=== PATIENT | male | born 1980 | race African-American/Black ===

== ENCOUNTER 2022-11-02 01:39 | Emergency (ER) | payer SELFPAY ==
[2022-11-02] VITALS (12 sets, daily range): BP systolic 147–166; BP diastolic 103–109; PULSE 90–113; RESP 16–25; TEMP 37.1; O2SAT 92–100
--- NOTE | ~2022-11-02 | CT_ITS ---
EXAMINATION: CTA chest PE protocol DATE: 11/02/2022 05:58 INDICATION: Left chest pain on inspiration. Shortness of breath. TECHNIQUE: Computed tomography angiography (CTA) of the chest was performed with 100 mL Omnipaque-350 intravenous contrast timed to evaluate the pulmonary arteries. Coronal maximum intensity projection 3D-reconstructions were created by the technologist. Automated exposure control and iterative reconst ruction technique were employed. The dose-length product was 282.16 mGy-cm. COMPARISON: None. FINDINGS: There is mild atelectasis in the lungs. There are airspace and groundglass opacities in lef t upper lobe, consistent with pneumonia. There is a trace left pleural effusion. The heart size is no rmal. No pericardial effusion. There is no pulmonary embolus. There is mild left hilar lymphadenopath y, likely reactive. There is mild thoracic spondylosis. There is mild chronic anterior wedging of mul tiple vertebral bodies. IMPRESSION: 1. No pulmonary embolus. 2. Left upper lobe pneumonia. 3. Mild left hilar lymphadenopathy, likely reactive. Reviewed, dictated and finalized at location A. ENT LOAN COUNSELOR
--- NOTE | 2022-11-02 01:40 | ECG_ITS ---
Measurements Intervals [place] Rate: 97 P: 50 NC: 164 QRS: 39 QRSD: 97 T: 40 QT: 347 QTc: 441 Interpretive Statements SINUS RHYTHM NORMAL ECG NO PREVIOUS ECG AVAILABLE FOR COMPARISON Electronically Signed On 11-02-2022 8:39:16 [employer]ITION[employer] by Ti Fish M.D.
[2022-11-02 01:55] LABS: Basophils Percent Auto 0.3 % (0.2-1.2); Eosinophils Percent Auto 0.3 % (0-4.4); Hematocrit 40.2 % (42.0-52.0); Hemoglobin 13.9 g/dL (14.0-18.0); Immature Granulocyte Absolute 0.06 K/mm3 (0.00-0.031); Immature Granulocyte Percent A 0.4 % (0-0.5); Lymphocytes Absolute Auto 3.46 K/mm3 (0.9-3.2); Lymphocytes Percent Auto 25.7 % (18.3-44.2); Mean Corpuscular HGB Conc 34.6 g/dl (32-36); Mean Corpuscular Hemoglobin 33.8 pg (26-34); Mean Corpuscular Volume 97.8 fl (80-100); Mean Platelet Volume 9.9 fl (7.4-10.4); Monocytes Percent Auto 7.4 % (2.6-8.5); Neutrophils Absolute Auto 8.9 K/mm3 (1.3-6.7); Neutrophils Percent Auto 65.9 % (45.5-73.1); Platelet Count Result 353 k/mm3 (150-375); Red Blood Count 4.11 M/mm3 (4.6-6.20); Red Cell Distribution Width 13.6 % (11.5-14.5); White Blood Count 13.5 K/mm3 (4.5-10.0)
[2022-11-02 02:05] LABS: Alanine Aminotransferase 21 U/L (6-50); Albumin Level 4.2 g/dL (3.5-5.1); Alkaline Phosphatase 113 U/L (38-126); Anion Gap 11 mmol/L (8-16); Aspartate Amino Transferase 24 U/L (17-59); Bilirubin,Total 0.5 mg/dL (0.2-1.3); Blood Urea Nitrogen 6 mg/dL (9-20); Calcium 8.5 mg/dL (8.4-10.2); Carbon Dioxide 23 mmol/L (22-30); Chloride 103 mmol/L (98-107); Estimated CRCL calculation 120 ml/min; Estimated Glomerular Filt Rate > 60; Glucose 95 mg/dL (65-110); Lipase 44 U/L (23-300); Potassium 3.1 mmol/L (3.4-5.0); Sodium 137 mmol/L (137-145)
[2022-11-02 02:16] LABS: Troponin I < 0.012 ng/mL (0.000-0.034)
[2022-11-02 02:22] LABS: INR 1.2; Prothrombin Time 14.2 Seconds (11.1-14.7)
[2022-11-02 02:23] LABS: Partial Thromboplastin Time 32.5 SECONDS (22.3-36.8)
--- NOTE | 2022-11-02 04:40 | PC.NURSE ---
patient here with complaint of left sided hest pain with inspiration. states it hurts when he moves and takes a deep breath. admits to smoking daily and states he had an upper respiratory infection a couple weeks ago.
[2022-11-02] MEDS: KETOROLAC 30 MG/ML VIAL (*BKC) IV PUSH (04:56)
[2022-11-02 05:03] LABS: Troponin I < 0.012 ng/mL (0.000-0.034)
--- NOTE | 2022-11-02 06:33 | ED.GENADULT ---
HPI - General Adult General Chief complaint: Chest Pain Stated complaint: CP Time Seen by Provider: 11/02/22 04:43 History of Present Illness HPI narrative: Patient is a 42-year-old male who presents ER with left-sided chest pain and back pain. Ongoing over the last 24 hours. Associate with cough. No fevers chills or sweats. No exertional component. Patient reports pain is worse with certain movements and deep breaths. No lower extremity swelling or cramping of the calves. No hemoptysis. Denies alleviating factors has not tried any oral pain medication. Related Data Allergies Allergy/AdvReac Type Severity Reaction Status Date / Time No Known Allergies Allergy Unverified 02/02/17 05:42 Review of Systems Review of Systems: All systems reviewed & are unremarkable except as noted in HPI and below Constitutional: Constitutional: Denies chills, Reports fatigue and Denies fever(s) ENT: Denies nasal congestion and Denies sore throat Cardiovascular: Cardiovascular: Reports chest pain, Denies rapid heart rate and Denies radiating jaw, neck or arm pain Respiratory: Respiratory: Reports cough, Denies dyspnea and Denies wheezing Gastrointestinal: Gastrointestinal: Denies abdominal pain, Denies diarrhea, Denies nausea and Denies vomiting PMFSH Past Medical History Medical History (Updated 11/02/22 @ 06:38 by Troy Pickering MD) Healthy adult male Surgical History Surgical History (Updated 11/02/22 @ 06:39 by Troy Pickering MD) No pertinent past surgical history Social History Social History (Updated 11/02/22 @ 06:39 by Troy Pickering MD) Smoking status: Current every day smoker Exam Narrative: GENERAL: Well-appearing, well-nourished, and in no acute distress. HEAD: Normocephalic, atraumatic. EYES: PERRL and EOMI. CHEST: Clear to auscultation. No respiratory distress. Reproducible chest wall tenderness. HEART: Regular rate and rhythm. Normal peripheral pulses. ABDOMEN: Soft, nontender, nondistended. EXTREMITIES: Normal range of motion. No edema. SKIN: Warm, dry, no rash. NEURO: Alert and oriented x3. PSYCH: Normal mood and affect. Course Course Emergency Course: Pain improving with treatment. Informed of results. Discussed treatment plan. No hypoxia. Discharge home. Vital Signs Vital signs: Vital Signs Temperature 98.8 F 12/11/22 01:51 Pulse Rate 102 H 11/02/22 01:51 Respiratory Rate 22 H 11/02/22 01:51 Blood Pressure 166/109 H 11/02/22 01:51 Pulse Oximetry 100 11/02/22 01:51 Oxygen Delivery Room Air 11/02/22 01:51 Temperature 98.8 F 11/02/22 01:51 Pulse Rate 93 11/02/22 06:00 Respiratory Rate 16 11/02/22 06:00 Blood Pressure 150/103 H 11/02/22 05:31 Pulse Oximetry 99 11/02/22 06:00 Oxygen Delivery Room Air 11/02/22 01:51 Medical Decision Making Vital Signs Vital Signs: Vital Signs Temperature 98.8 F 11/02/22 01:51 Pulse Rate 102 H 11/02/22 01:51 Respiratory Rate 22 H 11/02/22 01:51 Blood Pressure 166/109 H 11/02/22 01:51 Pulse Oximetry 100 11/02/22 01:51 Oxygen Delivery Room Air 11/02/22 01:51 Temperature 98.8 F 11/02/22 01:51 Pulse Rate 93 11/02/22 06:00 Respiratory Rate 16 11/02/22 06:00 Blood Pressure 150/103 H 11/02/22 05:31 Pulse Oximetry 99 11/02/22 06:00 Oxygen Delivery Room Air 11/02/22 01:51 Lab Data 11/02/22 01:50 11/02/22 01:50 Labs: Lab Results 11/02/22 11/02/22 11/02/22 Range/Units 01:50 01:50 01:50 WBC 13.5 H (4.5-10.0) K/mm3 RBC 4.11 L (4.6-6.20) M/mm3 Hgb 13.9 L (14.0-18.0) g/dL Hct 40.2 L (42.0-52.0) % MCV 97.8 (80-100) fl MCH 33.8 (26-34) pg MCHC 34.6 (32-36) g/dl RDW 13.6 (11.5-14.5) % Plt Count 353 (150-375) k/mm3 MPV 9.9 (7.4-10.4) fl Immature Gran % (Auto) 0.4 (0-0.5) % Neut % (Auto) 65.9 (45.5-73.1) % Lymph % (Auto) 25.7 (18.3-44.2) % [place] % (Auto) 7.4
== END 2022-11-02 06:47 | disposition home or self-care (01) ==
PROVIDERS: Emergency Provider Emergency Medicine
DX: J18.9 Pneumonia, unspecified organism (principal); F17.200 Nicotine dependence, unspecified, uncomplicated
CPT/HCPCS: 36415; 71275; 80053; 83690; 84484; 85025; 85610; 85730; 93005; 96374; 99284; J1885; Q9967

== ENCOUNTER 2024-05-05 13:44 | Emergency (ER) | payer SELFPAY ==
--- NOTE | ~2024-05-05 | CT_ITS ---
Non-contrast Head CT History: Blurry vision, hypertension Technique: Axial non-contrast imaging of the brain was performed. Dose reduction technique was used on this scan by utilizing automated exposure control and iterative reconstruction technique. The dose -length product (DLP) was 605.33 mGy-cm. Findings: There is no evidence of intracranial hemorrhage, mass lesion, or acute infarct. Brain par enchyma appears normal. The ventricles and subarachnoid spaces are normal in size. The calvarium ap pears normal. The visualized paranasal sinuses and mastoid air cells are clear. Impression: No significant abnormality seen. Reviewed, dictated and finalized at location . Impression: No significant abnormality seen.
--- NOTE | ~2024-05-05 | XR_ITS ---
EXAMINATION: XR chest 2V DATE: 05/05/2024 14:09 INDICATION: Central chest pain TECHNIQUE: PA and lateral views of the chest were obtained. COMPARISON: Chest CT dated 11/02/2022 FINDINGS: The lungs are clear with no focal airspace opacities, pulmonary edema, pleural effusion or pneumothor ax. The cardiomediastinal silhouette is normal. Mild thoracic spondylosis. IMPRESSION: 1. No acute cardiopulmonary disease. Reviewed, dictated and finalized at location A.
[2024-05-05 13:46] VITALS: BP 186/113; PULSE 95; RESP 20; TEMP 37.1; O2SAT 100
--- NOTE | 2024-05-05 13:46 | ECG_ITS ---
Test Date: 2024-05-05 13:51:57 Measurements Intervals [place] Rate: 96 P: 54 FL: 157 QRS: 40 QRSD: 84 T: 21 QT: 343 QTc: 433 Interpretive Statements SINUS RHYTHM WITHIN NORMAL LIMITS No previous ECG available for comparison Electronically Signed On 05-06-2024 06:59:47 CDT by Ti Fish M.D.
--- NOTE | 2024-05-05 13:52 | ED.CHESTPAIN ---
HPI - Chest Pain General Chief Complaint: Chest Pain <NAOMY Khalil Last Filed: 05/05/24 14:00> Stated Complaint: CP, HTN <NAOMY Khalil Last Filed: 05/05/24 14:00> Time Seen by Provider: 05/05/24 13:52 <NAOMY Khalil Last Filed: 05/05/24 14:00> Focused HPI: Patient is a 44 y/o male who presents to the ED with c/o CP and HTN. Patient reports he felt dizzy on Thursday and didn't go to work. On Thursday, he checked his blood pressure and noted it to be elevated. He is unsure of the number. Does not have known hx of HTN. Does not follow with PCP. Also reports having intermittent blurry vision and CP, midsternal, since Thursday. Denies aggravating or alleviating factors. Denies aggravation with exertion. Denies current CP. Denies headache, weakness, numbness, shortness of breath. Patient denies any other medications. He is a smoker. Denies hx of cardiac disease. GENERAL: Well-appearing, well-nourished, and in no acute distress. HEAD: Normocephalic, atraumatic. EYES: PERRL/EOMI CHEST: Clear to auscultation. ?No respiratory distress. HEART: Regular rate and rhythm.? MSK: No calf tenderness. No lower ext swelling. NEURO: ?Alert and oriented x3. Patient screened in triage and initial orders placed.? ?Additional care and disposition to be based upon?diagnostic testing and treatment. <NAOMY Khalil Last Filed: 05/05/24 14:00> Source: patient <NAOMY Khalil Last Filed: 05/05/24 14:00> Mode of arrival: ambulatory <NAOMY Khalil Last Filed: 05/05/24 14:00> Limitations: no limitations <NAOMY Khalil Last Filed: 05/05/24 14:00> History of Present Illness HPI narrative: Patient is a 44 year old male who presents to the ED with chest pain and hypertension. Patient reports he felt dizzy on Thursday and didn't go to work. On Thursday, he checked his blood pressure and noted it to be elevated to an unknown number. He does not have a history of HTN but does not follow with PCP regularly. He also notes intermittent blurry vision and midsternal chest pain which have been present since Thursday. Chest pain was non exertional. Chest pain is currently resolved. He currently has no complaints And states that all the symptoms have not completely resolved. He believes it has been years since he has seen a doctor. His significant other has been trying to get him in to see a doctor but they have had trouble establishing primary care. <Erika Carpenter MD - Last Filed: 05/05/24 22:11> Related Data Allergies/Adverse Reactions: Allergies Allergy/AdvReac Type Severity Reaction Status Date / Time No Known Allergies Allergy Unverified 02/02/17 05:42 <Yi Le PA-C - Last Filed: 05/05/24 14:00> Review of Systems Review of Systems: All systems reviewed & are unremarkable except as noted in HPI and below <Erika Carpenter MD - Last Filed: 05/05/24 22:11> PMFSH Past Medical History Medical History: Medical History (Updated 05/05/24 @ 20:30 by Erika Carpenter MD) Healthy adult male <Yi Le PA-C - Last Filed: 05/05/24 14:00> Surgical History Surgical History: Surgical History (Updated 11/02/22 @ 06:39 by Troy Pickering MD) No pertinent past surgical history <Yi Le PA-C - Last Filed: 05/05/24 14:00> Social History Social History: Social History (Updated 11/02/22 @ 06:39 by Troy Pickering MD) Smoking status: Current every day smoker <Yi Le PA-C - Last Filed: 05/05/24 14:00> Exam Narrative: GENERAL: Well-appearing, well-nourished, and in no acute distress. HEAD: Normocephalic, atraumatic. EYES: PERRLA and EOMI. ENT: Nares clear. Mucous membranes moist. NECK: Supple. CHEST: Clear to auscultation. No respiratory distress. HEART: Regular rate and rhythm. Normal peripheral pulses. ABDOMEN: Soft, nontender, nondistended.
[2024-05-05 14:24] LABS: Basophils Percent Auto 0.4 % (0.2-1.2); Eosinophils Absolute Auto 0.1 K/mm3 (0-0.3); Eosinophils Percent Auto 0.8 % (0-4.4); Hemoglobin 16.6 g/dL (14.0-18.0); Immature Granulocyte Absolute 0.04 K/mm3 (0.00-0.031); Immature Granulocyte Percent A 0.4 % (0-0.5); Lymphocytes Absolute Auto 2.32 K/mm3 (0.9-3.2); Mean Corpuscular HGB Conc 36.1 g/dl (32-36); Mean Corpuscular Hemoglobin 35.2 pg (26-34); Mean Corpuscular Volume 97.5 fl (80-100); Mean Platelet Volume 11.3 fl (7.4-10.4); Monocytes Absolute Auto 0.7 K/mm3 (0.1-0.6); Neutrophils Absolute Auto 6.5 K/mm3 (1.3-6.7); Neutrophils Percent Auto 67.4 % (45.5-73.1); Platelet Count Result 195 k/mm3 (150-375); Red Blood Count 4.72 M/mm3 (4.6-6.20); Red Cell Distribution Width 14.5 % (11.5-14.5); White Blood Count 9.7 K/mm3 (4.5-10.0)
[2024-05-05 14:28] LABS: Prothrombin Time 13.2 Seconds (11.1-14.7)
[2024-05-05 14:29] LABS: Alanine Aminotransferase 34 U/L (6-50); Albumin Level 4.9 g/dL (3.5-5.1); Alkaline Phosphatase 90 U/L (38-126); Anion Gap 10 mmol/L (4-12); Aspartate Amino Transferase 43 U/L (17-59); Bilirubin,Total 0.7 mg/dL (0.2-1.3); Blood Urea Nitrogen 10 mg/dL (9-20); Calcium 9.5 mg/dL (8.4-10.2); Carbon Dioxide 24 mmol/L (22-30); Chloride 102 mmol/L (98-107); Estimated CRCL calculation 93 ml/min; Estimated Glomerular Filt Rate > 60; Glucose 112 mg/dL (65-110); Lipase 81 U/L (23-300); Magnesium 1.7 mg/dL (1.6-2.3); Partial Thromboplastin Time 27.3 Seconds (22.3-36.8); Potassium 3.6 mmol/L (3.4-5.0); Sodium 136 mmol/L (137-145)
[2024-05-05 14:40] LABS: Troponin I < 0.012 ng/mL (0.000-0.034)
--- NOTE | 2024-05-05 18:03 | ECG_ITS ---
Test Date: 2024-05-05 18:11:03 Measurements Intervals [place] Rate: 93 P: 52 ID: 165 QRS: 36 QRSD: 85 T: 47 QT: 354 QTc: 441 Interpretive Statements SINUS RHYTHM WITHIN NORMAL LIMITS Compared to ECG 05/05/2024 13:51:57 MORE BASELINE MOTION ARTIFACT OTHERWISE NO OBVIOUS CHANGE Electronically Signed On 05-06-2024 07:06:29 CDT by Ti Fish M.D.
[2024-05-05 18:14] VITALS: BP 180/128; PULSE 90; PULSE 95; RESP 16; O2SAT 98
[2024-05-05 18:15] VITALS: O2SAT 100
[2024-05-05 18:29] LABS: Troponin I < 0.012 ng/mL (0.000-0.034)
[2024-05-05 18:35] LABS: Appearance Urine Clear (Clear); Bilirubin Urine Negative (Negative); Blood Urine Negative (Negative); Color Urine Yellow (Yellow); Glucose Urine UA Negative (Negative); Ketones Urine Trace mg/dL (Negative); Leukocyte Esterase Ur Negative LEU/UL (Negative); Nitrate Urine Negative (Negative); Protein Urine Negative (Negative); pH Urine 5.5 (5.0-9.0)
[2024-05-05 18:39] LABS: Add Urine Microscopic? NO
== END 2024-05-05 20:44 | disposition home or self-care (01) ==
PROVIDERS: Family Medicine; Physician Assistant; Emergency Provider Student in an Organized Health Care Education/Training Program
DX: R07.89 Other chest pain (principal); I10 Essential (primary) hypertension
CPT/HCPCS: 36415; 70450; 71046; 80053; 81003; 83690; 83735; 84484; 85025; 85610; 85730; 93005; 99284

== ENCOUNTER 2024-09-18 13:33 | Emergency (ER) | payer SELFPAY ==
[2024-09-18] VITALS (20 sets, daily range): BP systolic 155–213; BP diastolic 94–137; PULSE 74–100; RESP 13–22; TEMP 36.3; O2SAT 77–100
--- NOTE | ~2024-09-18 | CT_ITS ---
CT ANGIOGRAM NECK AND HEAD History: CVA. Technique: Axial noncontrast imaging of the brain was performed. Serial spiral axial images through t he head and neck were then obtained during arterial phase IV injection of 100 cc of Omnipaque 350. 3- D postprocessing and MIP images were then reconstructed on the remote workstation. Dose reduction alexandra hnique was used on this scan by utilizing automated exposure control and iterative reconstruction alexandra hnique. The dose-length product (DLP) was 1676.87 mGy-cm. COMPARISON: 05/05/2024 CTA neck findings: Bilateral vertebral arteries are patent. Bilateral common carotid, internal carot id, external carotid arteries are patent. No large vessel occlusion or stenosis. No aneurysm. The pro ximal right internal carotid artery demonstrates 0% stenosis relative to the normal distal artery lum en diameter. The proximal left internal carotid artery demonstrates 0% stenosis relative to the [place]ia [place] l distal artery lumen diameter. CTA head findings: Distal vertebral arteries, basilar artery, and posterior cerebral arteries are pat ent. Distal internal carotid arteries, middle cerebral arteries, and anterior cerebral arteries are p atent. There is a focal high-grade stenosis at the proximal M1 segment of the right middle cerebral a rtery. No other definite stenosis identified. No aneurysm. Axial noncontrast imaging of brain is unremarkable. No acute infarct, intracranial hemorrhage, or mas s lesion seen. Black-white differentiation preserved. No mass effect or midline shift. Ventricles and subarachnoid spaces are unremarkable. Orbits are unremarkable. Paranasal sinuses and mastoid air cell s are clear. Calvarium intact. Impression: Focal high-grade stenosis of the proximal M1 segment of the right middle cerebral artery. No large ve ssel occlusion. Reviewed, dictated and finalized at location M. Impression: Focal high-grade stenosis of the proximal M1 segment of the right middle cerebr al artery. No large vessel occlusion.
--- NOTE | ~2024-09-18 | XR_ITS ---
XR chest 2V DATE: 09/18/2024 14:38 INDICATION: Unable to move right side. TECHNIQUE: PA and lateral views COMPARISON: 05/05/2024 PA and lateral chest FINDINGS: Heart size is within normal limits. No hilar or mediastinal enlargement. No pulmonary infiltrate or consolidation, pleural effusion or pulmonary vascular congestion or pneumo thorax. Included skeletal structures are unremarkable. IMPRESSION: No active cardiopulmonary disease Reviewed, dictated and finalized at location A.
--- NOTE | 2024-09-18 14:09 | ECG_ITS ---
Test Date: 2024-09-18 14:25:24 Measurements Intervals [place] Rate: 76 P: 59 NM: 184 QRS: 50 QRSD: 93 T: 51 QT: 378 QTc: 426 Interpretive Statements SINUS RHYTHM POSSIBLE LEFT ATRIAL ENLARGEMENT [-0.1mV P-WAVE IN V1/V2] POSSIBLE LEFT VENTRICULAR HYPERTROPHY [VOLTAGE CRITERIA PLUS LAE OR QRS WIDENING] Compared to ECG 05/05/2024 18:11:03 No significant changes Electronically Signed On 09-19-2024 10:51:19 CDT by Carlos Stallworth M.D.
[2024-09-18] MEDS: LABETALOL HCL INJ 100 MG/20 ML VIAL 20 MG IV PUSH ×2 (14:24→15:36)
[2024-09-18 14:30] LABS: Basophils Percent Auto 0.5 % (0.2-1.2); Eosinophils Absolute Auto 0.1 K/mm3 (0-0.3); Eosinophils Percent Auto 0.8 % (0-4.4); Hematocrit 44.4 % (42.0-52.0); Hemoglobin 15.6 g/dL (14.0-18.0); Immature Granulocyte Absolute 0.02 K/mm3 (0.00-0.031); Immature Granulocyte Percent A 0.3 % (0-0.5); Lymphocytes Absolute Auto 2.72 K/mm3 (0.9-3.2); Mean Corpuscular HGB Conc 35.1 g/dl (32-36); Mean Corpuscular Hemoglobin 34.5 pg (26-34); Mean Corpuscular Volume 98.2 fl (80-100); Mean Platelet Volume 10.7 fl (7.4-10.4); Monocytes Absolute Auto 0.5 K/mm3 (0.1-0.6); Monocytes Percent Auto 6.1 % (2.6-8.5); Neutrophils Absolute Auto 4.3 K/mm3 (1.3-6.7); Neutrophils Percent Auto 56.3 % (45.5-73.1); Platelet Count Result 220 k/mm3 (150-375); Red Blood Count 4.52 M/mm3 (4.6-6.20); Red Cell Distribution Width 14.8 % (11.5-14.5); White Blood Count 7.6 K/mm3 (4.5-10.0)
[2024-09-18 14:42] LABS: Alanine Aminotransferase 25 U/L (6-50); Albumin Level 4.6 g/dL (3.5-5.1); Alkaline Phosphatase 71 U/L (38-126); Anion Gap 11 mmol/L (4-12); Aspartate Amino Transferase 22 U/L (17-59); Bilirubin,Total 0.4 mg/dL (0.2-1.3); Blood Urea Nitrogen 7 mg/dL (9-20); Carbon Dioxide 26 mmol/L (22-30); Chloride 104 mmol/L (98-107); Estimated CRCL calculation 117 ml/min; Estimated Glomerular Filt Rate > 60; Glucose 84 mg/dL (65-110); Potassium 3.6 mmol/L (3.4-5.0); Prothrombin Time 13.4 Seconds (11.1-14.7); Sodium 141 mmol/L (137-145)
[2024-09-18 14:43] LABS: Partial Thromboplastin Time 28.6 Seconds (22.3-36.8)
[2024-09-18 14:53] LABS: Troponin I < 0.012 ng/mL (0.000-0.034)
--- NOTE | 2024-09-18 15:42 | ED_ITS ---
HPI - General Adult General Chief complaint: Unspecified Stated complaint: I can barely move mu right side Time Seen by Provider: 09/18/24 13:57 History of Present Illness HPI narrative: Patient is a 44-year-old male who presents ER with right-sided weakness. Last known well was 9:30 p.m. last night. He woke up around 12:30 a.m. and spoke to his significant other and was having slurred speech and could use the right side of his body well. He has been falling to the right side when he walks. He has trouble lifting items with his right hand. He has slurred speech but can say t he words he wants to say. No word searching. No history of CVA. No drug use. Has significantly elevated blood pressures. Has history of hypertension for which he does not take any blood pressure medication. Related Data Allergies Allergy/AdvReac Type Severity Reaction Status Date / Time No Known Allergies Allergy Verified 09/18/24 14:02 Review of Systems Review of Systems: All systems reviewed & are unremarkable except as noted in HPI and below Constitutional: Constitutional: Reports no additional constitutional complaints ENT: Reports system reviewed and no additional complaints, except as documented Cardiovascular: Cardiovascular: Reports no additional cardiovascular complaints Respiratory: Respiratory: Reports no additional respiratory complaints Gastrointestinal: Gastrointestinal: Reports no additional gastrointestinal complaints Musculoskeletal: Musculoskeletal: Denies muscle cramps, Reports muscle weakness and Denies numbness Neurologic: Reports Abnormal speech present, Reports abnormal gait, Denies syn cope, Denies headache(s), Reports focal weakness and Denies numbness PMFSH Past Medical History Medical History (Updated 09/18/24 @ 17:31 by Troy Pickering MD) Hypertension Surgical History Surgical History (Updated 11/02/22 @ 06:39 by Troy Pickering MD) No pertinent past surgical history Social History Social History (Updated 11/02/22 @ 06:39 by Troy Pickering MD) Smoking status: Current every day smoker Exam Narrative: GENERAL: Well-appearing, well-nourished, and in no acute distress. HEAD: Normocephalic, atraumatic. EYES: PERRL and EOMI. ENT: Mucous membranes moist. Right-sided facial weakness. CHEST: Clear to auscultation. No respiratory distress. HEART: Regular rate and rhythm. Normal peripheral pulses. ABDOMEN: Soft, nontender, nondistended. EXTREMITIES: Normal range of motion. No edema. SKIN: Warm, dry, no rash. NEURO: NIH stroke scale of 5. Mild drift in right upper extremity with difficulty with finger-nose testing in the right upper extremity. Partial right facial paralysis with smiling and raising eyebrow. Mild dysarthria. No expressive aphasia. Normal [id number] testing.Alert and oriented x3. PSYCH: Normal mood and affect. Course Course Emergency Course: Started on labetalol drip for severe hypertension and neurologic deficit. CTA with high grade stenosis of the M1 of the right MCA. 1611: Discussed with Dr. Rodriguez with neurology at [facility]. Patient will be accepted under Dr. Andrea. recommends loading patient with oral aspirin 324 mg as well as Plavix 300 mg. He also reports that we can discontinue the labetalol drip. He would like the patient have permissive hypertension up to 220 mm meters mercury systolic. If it gets higher and that patient may receive IV hydralazine we push dose to lower it. Patient will be transferred to the step- down unit at [facility] when there is a bed available. Discussed treatment plan with patient who verbalized understanding. Vital Signs Vital signs: Vital Signs Temperature 97.4 F L 09/18/24 13:35 Pulse Rate 100 09/18/24 13:35 Respiratory Rate 16 09/18/24 13:35 Blood Pressure 213/130 H 09/18/24 13:35 Pulse Oximetry 100 09/18/24 13:35 Oxygen Delivery Room Air 09/18/24 13:35 Temperature 97.4 F L 09/18/24 13:35 Pulse Rate 80 09/18/24 16:12 Respiratory Rate 20 09/18/24 16:07 Blood Pressure 157/106 H 09/18/24 16:12 Pulse Oximetry 99 09/18/24 16:07 Oxygen Delivery Room Air 09/18/24 13:35 Medical Decision Making Vital Signs Vital Signs: Vital Signs Temperature 97.4 F L 09/18/24 13:35 Pulse Rate 100 09/18/24 13:35 Respiratory Rate 16 09/18/24 13:35 Blood Pressure 213/130 H 09/18/24 13:35 Pulse Oximetry 100 09/18/24 13:35 Oxygen Delivery Room Air 09/18/24 13:35 Temperature 97.4 F L 09/18/24 13:35 Pulse Rate 80 09/18/24 16:12 Respiratory Rate 20 09/18/24 16:07 Blood Pressure 157/106 H 09/18/24 16:12 Pulse Oximetry 99 09/18/24 16:07 Oxygen Delivery Room Air 09/18/24 13:35 Lab Data 09/18/24 14:23 09/18/24 14:23 Labs: Lab Results 09/18/24 Range/Units 14:23 WBC 7.6 (4.5-10.0) K/mm3 RBC 4.52 L (4.6-6.20) M/mm3 Hgb 15.6 (14.0-18.0) g/dL Hct 44.4 (42.0-52.0) % MCV 98.2 (80-100) fl MCH 34.5 H (26-34) pg MCHC 35.1 (32-36) g/dl RDW 14.8 H (11.5-14.5) % Plt Count 220 (150-375) k/mm3 MPV 10.7 H (7.4-10.4) fl Immature Gran % (Auto) 0.3 (0-0.5) % Neut % (Auto) 56.3 (45.5-73.1) % Lymph % (Auto) 36.0 (18.3-44.2) % [place] % (Auto) 6.1 (2.6-8.5) % Eos % (Auto) 0.8 (0-4.4) % Baso % (Auto) 0.5 (0.2-1.2) % Lymph # (Auto) 2.72 (0.9-3.2) K/mm3 [place] # (Auto) 0.5 (0.1-0.6) K/mm3 Eos # (Auto) 0.1 (0-0.3) K/mm3 Baso # (Auto) 0.0 (0.0-0.1) K/mm3 Abs Immat Gran (auto) 0.02 (0.00-0.031) K/mm3 Absolute Neuts (auto) 4.3 (1.3-6.7) K/mm3 Absolute Nucleated RBC 0.000 (0.0-0.012) K/mm3 Nucleated RBC % 0.0 (0.0-0.2) % PT 13.4 (11.1-14.7) Seconds INR 1.0 APTT 28.6 (22.3-36.8) Seconds Sodium 141 (137-145) mmol/L Potassium 3.6 (3.4-5.0) mmol/L Chloride 104 (98-107) mmol/L Carbon Dioxide 26 (22-30) mmol/L Anion Gap 11 (4-12) mmol/L BUN 7 L (9-20) mg/dL Creatinine 0.70 (0.7-1.3) mg/dL Estim Creat Clear Calc 117 ml/min Estimated GFR > 60 (59 - ) Glucose 84 (65-110) mg/dL Calcium 9.0 (8.4-10.2) mg/dL Total Bilirubin 0.4 (0.2-1.3) mg/dL AST 22 (17-59) U/L ALT 25 (6-50) U/L Alkaline Phosphatase 71 (38-126) U/L Troponin I < 0.012 (0.000-0.034) ng/mL Total Protein 8.0 (6.3-8.2) g/dL Albumin 4.6 (3.5-5.1) g/dL Imaging Data Radiologist's impression: ITS Impressions Chest X-Ray 09/18/24 14:59 IMPRESSION: No active cardiopulmonary disease CTA of the brain and carotids: No acute hemorrhage or ischemic stroke. Severe stenosis of the right M1 MCA a 3 mm in length. No carotid stenosis. Critical Care Time Critical Care Time Critical Care Time: Yes Total Critical Care Time: 35 Discharge Plan Discharge Clinical Impression: Acute CVA (cerebrovascular accident), Severe hypertension Patient Disposition: Acute Care Hospital Condition: Serious Prescriptions: No Action azithromycin 250 mg tablet See Rx Instructions .ROUTE .COMPLEX Qty: 6 0RF Rx Instructions: take 500 mg today (day 1), then 250 mg for 4 days (days 2-5) hydrocodone-acetaminophen 5-325 mg tablet 1 tablet PO Q6H PRN (Reason: pain) Qty: 20 0RF albuterol sulfate 90 mcg/actuation HFA aerosol inhaler 2 puff INHALATION QID PRN (Reason: shortness of breath or wheezing) Qty: 8 0RF amlodipine 5 mg tablet 5 mg PO DAILY Qty: 30 0RF Follow-up/Referrals: PHYSICIAN,[employer] SALESPERSON [Primary Care Provider] - Quality Stroke Scale Stroke Scale 1: Stroke scale date:: 09/18/24 Stroke scale time:: 14:00 1a Level of consciousness: alert-0 1b Level of consciousness questions: answers both correctly-0 1c Level of consciousness commands: obeys both correctly-0 2 Best gaze: normal-0 3 Visual: no visual loss-0 4 Facial palsy: partial paralysis-2 5a Motor: left arm: no drift-0 5b Motor: right arm: drift-1 6a Motor: left leg: no drift-0 6b Motor: right leg: no drift-0 7 Limb ataxia: present in one limb-1 8 Sensory: normal-0 9 Best language: no aphasia-0 10 Dysarthria: slurs some words-1 11 Extinction and inattention: no abnormality-0 Level:: 5
[2024-09-18] MEDS: LABETALOL HCL INJ 200 MG in DEXTROSE 5% IN WATER 160 ML 120 MG IV CONT (15:57)
[2024-09-18] MEDS: CLOPIDOGREL BISULFATE 300 MG TABLET PO (16:14)
[2024-09-18] MEDS: ASPIRIN 81 MG CHEWABLE TABLET 324 MG PO (16:14)
== END 2024-09-18 18:53 | disposition short-term general hospital (02) ==
PROVIDERS: Emergency Provider Emergency Medicine
DX: I63.9 Cerebral infarction, unspecified (principal); R47.81 Slurred speech; G81.91 Hemiplegia, unspecified affecting right dominant side; I10 Essential (primary) hypertension; F17.200 Nicotine dependence, unspecified, uncomplicated
CPT/HCPCS: 36415; 70496; 70498; 71046; 80053; 84484; 85025; 85610; 85730; 93005; 96374; 96376; 99285; A9270; J7060; Q9967